=== PATIENT | female | born 1980 ===

== ENCOUNTER 2016-09-18 08:57 | Emergency (ER) | payer BC ==
[2016-09-18 09:14] VITALS: BP 123/75
--- NOTE | 2016-09-18 11:22 | UC ---
[place]urora, DoctorAnay, scribed for Shayna Adames MD on 09/18/16 at 1018 . General HPI - HPI Summary HPI Summary: 36 year old female arrived to [facility] [place] c/o persistent nausea and generalized body aches for the past four days. She reports initially feeling her stomach "pulling ," followed by aches/general soreness and multiple episodes of vomiting and dry heaving four nights ago. She further reports diarrhea at 0300 this morning, dizziness, WELLS, and nausea; her discomfort is exacerbated when laying down. She denies any congestion, skin rash, hematochezia, or abdominal pain. She has regularly been taking 8 mg/day of Zophran since onset for her symptoms. She indicates that she has not been able to eat much beyond crackers and Amy Teressa , last ate two eggs yesterday morning. Multiple family members have been suffering from similar symptoms; she denies any other relevant PMHx. - History of Current Complaint Chief Complaint: UCGeneralIllness Stated Complaint: VOMITING/DIARRHEA DIZZY Time Seen by Provider: 09/18/16 09:23 Hx Obtained From: Patient Onset/Duration: Gradual Onset, Lasting Days, Still Present Onset Severity: Moderate Current Severity: Moderate Pain Intensity: 0 - On 0/10 Numeric Scale Associated Signs & Symptoms: Positive: Diarrhea - loose stool, no hematochezia, Decreased Oral Intake, Headache, Nausea, Vomiting, Weakness - generalized weakness. Negative: Abdominal Pain, Fever - Allergy/Home Medications Allergies/Adverse Reactions: Allergies Allergy/AdvReac Type Severity Reaction Status Date / Time Clindamycin Allergy Intermediate Rash And Verified 09/18/16 09:14 Itching Cefazolin [From Ancef] Allergy Unknown Rash And Verified 09/18/16 09:14 Itching Atropine AdvReac Mild Tachycardia Verified 09/18/16 09:14 PMH/Surg Hx/FS Hx/Imm Hx Respiratory History Of: Reports: Asthma Psychological History Of: Reports: Anxiety - Surgical History Surgical History: Yes Surgery Procedure, Year, and Place: right heel. tonsils. right sinus. left leg. right eye - Family History Known Family History: Positive: Cardiac Disease, Hypertension, Other - Cancer - Social History Lives: With Family Alcohol Use: None Substance Use Type: None Smoking Status (MU): Never Smoked Tobacco Review of Systems Constitutional: Other - no fever Gastrointestinal: Vomiting, Diarrhea, Other - nausea; no abdominal pain Genitourinary: Negative Neurological: Headache, Other - Generalized body aches All Other Systems Reviewed And Are Negative: Yes Physical Exam Triage Information Reviewed: Yes Appearance: Well-Nourished, Ill-Appearing, Pain Distress Vital Signs: Initial Vital Signs Temp 99.2 F 09/18/16 09:06 Pulse 88 09/18/16 09:06 Resp 16 09/18/16 09:06 BP 123/75 09/18/16 09:06 Pulse Ox 99 09/18/16 09:06 Vital Signs Reviewed: Yes Eyes: Positive: Conjunctiva Clear ENT: Positive: Normal ENT inspection, Other: - Mucous membranes are moist Neck: Positive: Supple Respiratory: Positive: Lungs clear, Normal breath sounds, No respiratory distress Cardiovascular: Positive: RRR, No Murmur, Pulses Normal, Brisk Capillary Refill Abdomen Description: Positive: Nontender, No Organomegaly, Soft. Negative: CVA Tenderness (R), CVA Tenderness (L), Distended, Guarding, McBurney's Point Tenderness, Peritoneal Signs Bowel Sounds: Positive: Present Musculoskeletal: Positive: Strength Intact, ROM Intact Neurological: Positive: Alert, Muscle Tone Normal Psychological Exam: Normal Skin Exam: Normal Course/Dx - Differential Dx - Multi-Symptom Differential Diagnoses: Urinary Tract Infection, Other - gastroenteritis Provider Diagnoses: gastroenteritis Discharge - Discharge Plan Condition: Stable Disposition: HOME Prescriptions: Ondansetron [Zofran 8 MG Odt] 8 mg PO Q8H PRN #20 tab PRN Reason: Nausea Patient Education Materials: Gastroenteritis (ED) Referrals: [facility] [place]Outside] - 3 Days (call this number to get established with a primary care provider. ) Additional Instructions: Follow the BRAT diet as we discussed. You should be rechecked if your symptoms perist 3 days more. Go to the emergency room if you have new or worsening symptoms. The documentation as recorded by the Doctor leo Tahera accurately reflects the service I personally performed and the decisions made by , Shayna Adames MD.
== END 2016-09-18 10:31 | disposition home or self-care (01) ==
LOC: UCEAST 08:57
DX: K52.9 Noninfective gastroenteritis and colitis, unspecified (principal); J45.909 Unspecified asthma, uncomplicated; F41.9 Anxiety disorder, unspecified; Z88.3 Allergy status to other anti-infective agents
CPT/HCPCS: 81003; 84702; 99202; G0463